=== PATIENT | male | born 1965 | race American Indian/Alaskan Native ===

== ENCOUNTER 2017-06-11 09:30 | Emergency (ER) | payer MEDICARE ==
[2017-06-11 10:31] LABS: Bacteria,Urine 1+ /HPF (Negative); Bilirubin,Urine NEG (Negative); Blood,Urine NEG (Negative); Ketones,Urine NEG (Negative); Leukocyte Esterase,Urine NEG (Negative); Nitrite,Urine NEG (Negative); Urobilinogen,Urine < 2.0 mg/dL (<2.0)
[2017-06-11 10:37] LABS: Basophils % (Auto) 0.3 % (0.0-1.8); Eosinophils % (Auto) 1.6 % (0.0-4.3); Hematocrit 47.1 % (35.5-45.6); Hemoglobin 16.4 gm/dl (11.8-15.2); Mean Corpuscular HGB Conc 35 % (32-34); Mean Corpuscular Hemoglobin 31 pg (28-32); Mean Corpuscular Volume 88 fl (84-94); Platelet Count 253 K/mm3 (140-440); Red Blood Count 5.34 M/mm3 (3.65-5.03); Red Cell Distribution Width 13.8 % (13.2-15.2); White Blood Count 5.1 K/mm3 (4.5-11.0)
[2017-06-11 10:49] LABS: Amylase 85 units/L (27-131); Lipase 39 units/L (13-60)
[2017-06-11 10:50] LABS: Anion Gap 20 mmol/L; BUN/Creatinine Ratio 11; Blood Urea Nitrogen 10 mg/dL (9-20); Calcium 10.3 mg/dL (8.4-10.2); Carbon Dioxide 27 mmol/L (22-30); Chloride 95.7 mmol/L (98-107); Glucose 127 mg/dL (75-100); Potassium 3.9 mmol/L (3.6-5.0); Sodium 139 mmol/L (137-145)
--- NOTE | 2017-06-11 15:40 | Emergency Department Report ---
ED N/V/D HPI - General Chief complaint: Nausea/Vomiting/Diarrhea Stated complaint: REFLUX Time Seen by Provider: 06/11/17 15:26 Source: patient Mode of arrival: Ambulatory Limitations: No Limitations - History of Present Illness Initial comments: 51-year-old male with a past medical history of chronic reflux and sent to the hospital with epigastric pain and reflux symptoms with just 3 days. Patient states in 2009 he had surgery for severe reflux that has been doing pretty well since. Recently he states he has been out of his omeprazole for 2 weeks because his PMD forgot to refill the medication. Patient also admits to being noncompliant with his small frequent meals diet and advanced to 3 peak meals a day. Pain is intermittent, burning, and severe at times. Symptoms are intermittent and worse her by mouth intake and lying supine. The last 3 days patient's pain having intermittent nausea and vomiting with associated epigastric and chest burning. Symptoms became severe last night and patient was unable to sleep due to frequent reflux symptoms with associated yellow vomitus that was blood streaked on occasion and light brown. No reports of fever, melena, or or hematochezia. Patient expresses concern that he might cause damage to his distal esophagus gerd surgery. GI Dr james. - Related Data Previous Rx's Medication Instructions Recorded Last Taken Type Amoxicillin [Amoxicillin TAB] 875 mg PO BID #20 tablet 05/28/15 Unknown Rx HYDROcodone/APAP 5-325 [Elizabeth 1 each PO Q6HR PRN #20 tablet 06/11/17 Unknown Rx 5/325] Mag Hydrox/Aluminum Hyd/Simeth 20 ml PO QID PRN #1 bottle 06/11/17 Unknown Rx [Maalox Advanced Suspension] Ondansetron [Zofran Odt] 4 mg PO Q8HR #20 tab.rapdis 06/11/17 Unknown Rx Pantoprazole [Protonix TAB] 20 mg PO QDAY #30 tablet. 06/11/17 Unknown Rx Allergies Allergy/AdvReac Type Severity Reaction Status Date / Time No Known Allergies Allergy Verified 05/28/15 00:33 ED Review of Systems ROS: Stated complaint: REFLUX Other details as noted in HPI Comment: All other systems reviewed and negative Other: Constitutional: No fevers chills or weight loss Eyes: No eye pain visual changes or discharge ENT: No ear pain or throat pain Neck: Denies pain Respiratory: Denies cough wheezing shortness of breath Cardiovascular: Denies palpitations, syncope GI: As per HPI : Denies dysuria Musculoskeletal: Denies back pain Skin: Denies rash, lesions, erythema Neurologic: Denies headache, numbness, weakness Psychiatric: Denies suicidal ideation, hallucinations ED Past Medical Hx - Past Medical History Hx Asthma: Yes (as a child) Additional medical history: chronic back pain. acid reflux - Surgical History Additional Surgical History: compound fracture right leg 1981. hiatal hernia and Irineo fundoplication - Social History Smoking Status: Never Smoker Substance Use Type: Alcohol - Medications Home Medications: Home Medications Medication Instructions Recorded Confirmed Last Taken Type Amoxicillin [Amoxicillin TAB] 875 mg PO BID #20 tablet 05/28/15 Unknown Rx HYDROcodone/APAP 5-325 [Elizabeth 1 each PO Q6HR PRN #20 tablet 06/11/17 Unknown Rx 5/325] Mag Hydrox/Aluminum Hyd/Simeth 20 ml PO QID PRN #1 bottle 06/11/17 Unknown Rx [Maalox Advanced Suspension] Ondansetron [Zofran Odt] 4 mg PO Q8HR #20 tab.rapdis 06/11/17 Unknown Rx Pantoprazole [Protonix TAB] 20 mg PO QDAY #30 tablet.dr 06/11/17 Unknown Rx ED Physical Exam - General Limitations: No Limitations - Other Other exam information: General: No limitations, patient is alert in no acute distress Head exam: Atraumatic, normocephalic Eyes exam: Normal appearance, nonicteric sclera ENT: Moist mucous membrane, normal oropharynx Neck exam: Normal inspection, full range of motion, no meningismus nontender Respiratory exam: Clear to auscultation bilateral, no wheezes, rales, crackles Cardiovascular: Normal rate and rhythm, normal heart sounds Abdomen: Soft, nondistended, mild epigastric tenderness, with normal bowel sounds, no rebound, or guarding Extremity: Full range of motion normal inspection no deformity Back: Normal Inspection, full range of motion, no tenderness Neurologic: Alert, oriented x3, cranial nerves intact, no motor or sensory deficit Psychiatric: normal affect, normal mood Skin: Warm, dry, intact ED Course Vital Signs 06/11/17 06/11/17 06/11/17 09:38 16:18 16:20 Temperature 98.6 F 98.0 F Pulse Rate 103 H 83 Respiratory 18 16 16 Rate Blood Pressure 127/82 Blood Pressure 123/72 [Left] O2 Sat by Pulse 100 99 99 Oximetry ED Medical Decision Making - Lab Data Result diagrams: 06/11/17 09:56 06/11/17 09:56 Lab Results 06/11/17 06/11/17 06/11/17 Range/Units 05:56 09:55 09:56 WBC 5.1 (4.5-11.0) K/mm3 RBC 5.34 H (3.65-5.03) M/mm3 Hgb 16.4 H (11.8-15.2) gm/dl Hct 47.1 H (35.5-45.6) % MCV 88 (84-94) fl MCH 31 (28-32) pg MCHC 35 H (32-34) % RDW 13.8 (13.2-15.2) % Plt Count 253 (140-440) K/mm3 Lymph % (Auto) 41.5 H (13.4-35.0) % [place] % (Auto) 9.3 H (0.0-7.3) % Eos % (Auto) 1.6 (0.0-4.3) % Baso % (Auto) 0.3 (0.0-1.8) % Lymph # 2.1 (1.2-5.4) K/mm3 [place] # 0.5 (0.0-0.8) K/mm3 Eos # 0.1 (0.0-0.4) K/mm3 Baso # 0.0 (0.0-0.1) K/mm3 Seg Neutrophils % 47.3 (40.0-70.0) % Seg Neutrophils # 2.4 (1.8-7.7) K/mm3 Sodium (137-145) mmol/L Potassium (3.6-5.0) mmol/L Chloride (98-107) mmol/L Carbon Dioxide (22-30) mmol/L Anion Gap mmol/L BUN (9-20) mg/dL Creatinine (0.8-1.5) mg/dL Estimated GFR ml/min BUN/Creatinine Ratio % Glucose (75-100) mg/dL Calcium (8.4-10.2) mg/dL Total Bilirubin 0.60 (0.1-1.2) mg/dL Direct Bilirubin < 0.2 (0-0.2) mg/dL Indirect Bilirubin 0.4 mg/dL AST 34 (5-40) units/L ALT 50 (7-56) units/L Alkaline Phosphatase 63 (35-129) units/L Total Protein 7.9 (6.3-8.2) g/dL Albumin 4.7 (3.9-5) g/dL Albumin/Globulin Ratio 1.5 % Amylase (27-131) units/L Lipase (13-60) units/L Urine Color Yellow (Yellow) Urine Turbidity Clear (Clear) Urine pH 9.0 H (5.0-7.0) Ur Specific [place] 1.017 (1.003-1.030) Urine Protein 100 mg/dl (Negative) mg/dL Urine Glucose (UA) Neg (Negative) mg/dL Urine Ketones Neg (Negative) mg/dL Urine Blood Neg (Negative) Urine Nitrite Neg (Negative) Urine Bilirubin Neg (Negative) Urine Urobilinogen < 2.0 (<2.0) mg/dL Ur Leukocyte Esterase Neg (Negative) Urine WBC (Auto) 3.0 (0.0-6.0) /HPF Urine RBC (Auto) 2.0 (0.0-6.0) /HPF Urine Bacteria (Auto) 1+ (Negative) /HPF 06/11/17 06/11/17 Range/Units 09:56 09:56 WBC (4.5-11.0) K/mm3 RBC (3.65-5.03) M/mm3 Hgb (11.8-15.2) gm/dl Hct (35.5-45.6) % MCV (84-94) fl MCH (28-32) pg MCHC (32-34) % RDW (13.2-15.2) % Plt Count (140-440) K/mm3 Lymph % (Auto) (13.4-35.0) % [place] % (Auto) (0.0-7.3) % Eos % (Auto) (0.0-4.3) % Baso % (Auto) (0.0-1.8) % Lymph # (1.2-5.4) K/mm3 [place] # (0.0-0.8) K/mm3 Eos # (0.0-0.4) K/mm3 Baso # (0.0-0.1) K/mm3 Seg Neutrophils % (40.0-70.0) % Seg Neutrophils # (1.8-7.7) K/mm3 Sodium 139 (137-145) mmol/L Potassium 3.9 (3.6-5.0) mmol/L Chloride 95.7 L (98-107) mmol/L Carbon Dioxide 27 (22-30) mmol/L Anion Gap 20 mmol/L BUN 10 (9-20) mg/dL Creatinine 0.9 (0.8-1.5) mg/dL Estimated GFR > 60 ml/min BUN/Creatinine Ratio 11 % Glucose 127 H (75-100) mg/dL Calcium 10.3 H (8.4-10.2) mg/dL Total Bilirubin (0.1-1.2) mg/dL Direct Bilirubin (0-0.2) mg/dL Indirect Bilirubin mg/dL AST (5-40) units/L ALT (7-56) units/L Alkaline Phosphatase (35-129) units/L Total Protein (6.3-8.2) g/dL Albumin (3.9-5) g/dL Albumin/Globulin Ratio % Amylase 85 (27-131) units/L Lipase 39 (13-60) units/L Urine Color (Yellow) Urine Turbidity (Clear) Urine pH (5.0-7.0) Ur Specific [place] (1.003-1.030) Urine Protein (Negative) mg/dL Urine Glucose (UA) (Negative) mg/dL Urine Ketones (Negative) mg/dL Urine Blood (Negative) Urine Nitrite (Negative) Urine Bilirubin (Negative) Urine Urobilinogen (<2.0) mg/dL Ur Leukocyte Esterase (Negative) Urine WBC (Auto) (0.0-6.0) /HPF Urine RBC (Auto) (0.0-6.0) /HPF Urine Bacteria (Auto) (Negative) /HPF - Medical Decision Making Patient feels much better at the ED treatment including 1 L normal saline, Pepcid IV, morphine IV, Zofran IV, by mouth Maalox and viscous lidocaine - Differential Diagnosis GERD, pancreatitis, cholecystitis, biliary colic Critical Care Time: No Critical care attestation.: If time is entered above; I have spent that time in minutes in the direct care of this critically ill patient, excluding procedure time. ED Disposition Clinical Impression: GERD (gastroesophageal reflux disease) Disposition: DC-01 TO HOME OR SELFCARE Is pt being admited?: No Does the pt Need Aspirin: No Condition: Stable Instructions: Gastroesophageal Reflux in Children (ED) Additional Instructions: Taking medication as prescribed. Follow-up with your doctor and your GI doctor provided. Return is symptoms worsen Prescriptions: HYDROcodone/APAP 5-325 [Elizabeth 5/325] 1 each PO Q6HR PRN #20 tablet PRN Reason: Pain Mag Hydrox/Aluminum Hyd/Simeth [Maalox Advanced Suspension] 20 ml PO QID PRN #1 bottle PRN Reason: Indigestion Ondansetron [Zofran Odt] 4 mg PO Q8HR #20 tab.rapdis Pantoprazole [Protonix TAB] 20 mg PO QDAY #30 tablet. Referrals: PRIMARY CAREMD [Primary Care Provider] - 3-5 Days NAZIA JAMES MD [Staff Physician] - 3-5 Days Time of Disposition: 17:21
[2017-06-11 15:48] LABS: Alanine Aminotransferase 50 units/L (7-56); Albumin 4.7 g/dL (3.9-5); Albumin/Globulin Ratio 1.5 %; Total Protein 7.9 g/dL (6.3-8.2)
[2017-06-11] MEDS ORDERED: MORPHINE ONE (15:51)
[2017-06-11 16:03] LABS: Alkaline Phosphatase 63 units/L (35-129)
[2017-06-11] MEDS: ALUM-MAG HYDROX-SIMETH 200-200-20MG/5ML PO ONE (16:03)
[2017-06-11] MEDS: LIDOCAINE VISCOUS 2% PO ONE (16:03)
[2017-06-11] MEDS: PEPCID IV ONE (16:03)
[2017-06-11] MEDS: MORPHINE IV ONE (16:03)
[2017-06-11] MEDS: NACL 0.9% 1000 ML 1,000 ML IV ONE (16:03)
[2017-06-11] MEDS: ZOFRAN IV ONE (16:03)
[2017-06-11 16:11] LABS: Bilirubin,Direct < 0.2 mg/dL (0-0.2); Bilirubin,Indirect 0.4 mg/dL
[2017-06-11 16:20] VITALS: BP 123/72
== END 2017-06-11 17:38 | disposition home or self-care (01) ==
LOC: ED 09:30
DX: K21.9 Gastro-esophageal reflux disease without esophagitis (principal); J45.909 Unspecified asthma, uncomplicated
CPT/HCPCS: 36415; 80048; 80074; 81001; 82150; 83690; 85025; 96361; 96374; 96375; 99283; J2270; J2405; J7030

== ENCOUNTER 2019-05-28 17:28 | Emergency (ER) | payer MEDICARE ==
[2019-05-28 18:30] VITALS: BP 140/93
--- NOTE | 2019-05-28 19:22 | XRay Report ---
CHEST PA AND LATERAL VIEWS INDICATION: COUGH. COMPARISON: 07/31/2018 FINDINGS: Support devices: None Heart: Stable. Lungs/Pleura: No acute pulmonary or pleural findings. IMPRESSION: 1. No significant change. Signer Name: Tiago Brooke MD Signed: 05/28/2019 7:18 PM Workstation Name: [id number]
--- NOTE | 2019-05-28 19:59 | Emergency Department Report ---
- General Chief Complaint: Upper Respiratory Infection Stated Complaint: COUGH Time Seen by Provider: 05/28/19 19:17 Source: patient Mode of arrival: Ambulatory Limitations: No Limitations - History of Present Illness Initial Comments: 53-year-old male with history of acid reflux presents to ED with URI symptoms, onset this morning. Patient reports headache, sore throat, congestion, earache, cough, muscle aches, nausea and vomiting. Patient denies fever, chest pain, shortness of breath. MD Complaint: cough -: This morning Severity: mild Consistency: constant Improves With: nothing Worsens With: nothing Associated Symptoms: headache, nasal congestion, sore throat, cough, nausea, vomiting. denies: fever, chest pain, shortness of breath, abdominal pain, diarrhea - Related Data Home Medications Medication Instructions Recorded Confirmed Last Taken Esomeprazole Magnesium [Nexium] 40 mg PO DAILY 07/01/18 07/01/18 Unknown Previous Rx's Medication Instructions Recorded Last Taken Type Dicyclomine [Bentyl] 10 mg PO TID #30 capsule 07/01/18 Unknown Rx Mag Hydrox/Aluminum Hyd/Simeth 30 ml PO Q8H #1 bottle 07/01/18 Unknown Rx [Maalox Advanced Suspension] methOCARBAMOL [Robaxin TAB] 500 mg PO BID #20 tab 07/01/18 Unknown Rx metroNIDAZOLE [Flagyl TAB] 500 mg PO BID #14 tablet 07/01/18 Unknown Rx Benzonatate [Tessalon Perle] 100 mg PO TID PRN #30 capsule 07/31/18 Unknown Rx Cetirizine HCl [Allergy Relief] 10 mg PO DAILY #30 tablet 07/31/18 Unknown Rx Fluticasone [Flonase] 1 spray NS QDAY #1 bottle 07/31/18 Unknown Rx Guaifenesin/Dm/Pseudoephedrine 1 each PO BID #14 tablet 07/31/18 Unknown Rx [Desgen Dm Tablet] Benzonatate [Tessalon Perles] 100 mg PO Q8HR PRN #20 capsule 05/28/19 Unknown Rx Naproxen [Naprosyn] 500 mg PO BID #20 tablet 05/28/19 Unknown Rx Ondansetron [Zofran Odt] 4 mg PO Q8HR PRN #20 tab.rapdis 05/28/19 Unknown Rx Allergies Allergy/AdvReac Type Severity Reaction Status Date / Time No Known Allergies Allergy Verified 05/28/19 18:29 ED Review of Systems ROS: Stated complaint: COUGH Other details as noted in HPI Comment: All other systems reviewed and negative Constitutional: denies: chills, fever ENT: ear pain, throat pain, congestion Respiratory: cough. denies: shortness of breath Cardiovascular: denies: chest pain Gastrointestinal: nausea, vomiting. 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 acid reflux - Surgical History Past Surgical History?: Yes Additional Surgical History: compound fracture right leg 1982, hiatal hernia. hiatal hernia and Irineo fundoplication - Social History Smoking Status: Never Smoker Substance Use Type: Alcohol - Medications Home Medications: Home Medications Medication Instructions Recorded Confirmed Last Taken Type Dicyclomine [Bentyl] 10 mg PO TID #30 capsule 07/01/18 Unknown Rx Esomeprazole Magnesium [Nexium] 40 mg PO DAILY 07/01/18 07/01/18 Unknown History Mag Hydrox/Aluminum Hyd/Simeth 30 ml PO Q8H #1 bottle 07/01/18 Unknown Rx [Maalox Advanced Suspension] methOCARBAMOL [Robaxin TAB] 500 mg PO BID #20 tab 07/01/18 Unknown Rx metroNIDAZOLE [Flagyl TAB] 500 mg PO BID #14 tablet 07/01/18 Unknown Rx Benzonatate [Tessalon Perle] 100 mg PO TID PRN #30 capsule 07/31/18 Unknown Rx Cetirizine HCl [Allergy Relief] 10 mg PO DAILY #30 tablet 07/31/18 Unknown Rx Fluticasone [Flonase] 1 spray NS QDAY #1 bottle 07/31/18 Unknown Rx Guaifenesin/Dm/Pseudoephedrine 1 each PO BID #14 tablet 07/31/18 Unknown Rx [Desgen Dm Tablet] Benzonatate [Tessalon Perles] 100 mg PO Q8HR PRN #20 capsule 05/28/19 Unknown Rx Naproxen [Naprosyn] 500 mg PO BID #20 tablet 05/28/19 Unknown Rx Ondansetron [Zofran Odt] 4 mg PO Q8HR PRN #20 tab.rapdis 05/28/19 Unknown Rx ED Physical Exam - General Limitations: No Limitations General appearance: alert, in no apparent distress - Head Head exam: Present: atraumatic, normocephalic - Eye Eye exam: Present: normal appearance, EOMI - ENT ENT exam: Present: normal orophraynx, mucous membranes moist, TM's normal bilaterally - Neck Neck exam: Present: normal inspection, full ROM. Absent: meningismus - Respiratory Respiratory exam: Present: normal lung sounds bilaterally. Absent: respiratory distress - Cardiovascular Cardiovascular Exam: Present: regular rate, normal rhythm - GI/Abdominal GI/Abdominal exam: Present: soft. Absent: distended, tenderness - Extremities Exam Extremities exam: Present: normal inspection - Neurological Exam Neurological exam: Present: alert, oriented X3, CN II-XII intact. Absent: motor sensory deficit - Psychiatric Psychiatric exam: Present: normal affect, normal mood - Skin Skin exam: Present: warm, dry, intact, normal color ED Course Vital Signs 05/28/19 18:29 Temperature 98.9 F Pulse Rate 90 Respiratory 20 Rate Blood Pressure 140/93 [Right] O2 Sat by Pulse 100 Oximetry ED Medical Decision Making - Radiology Data Radiology results: report reviewed, image reviewed - Medical Decision Making - nml vitals - no resp distress - CXR nml - d/c home; outpt f/u advised; return precautions given - Differential Diagnosis URI, flu, pneumonia Critical care attestation.: If time is entered above; I have spent that time in minutes in the direct care of this critically ill patient, excluding procedure time. ED Disposition Clinical Impression: Upper respiratory infection Disposition: DC-01 TO HOME OR SELFCARE Is pt being admited?: No Condition: Stable Instructions: Upper Respiratory Infection (ED), Viral Syndrome (ED) Prescriptions: Naproxen [Naprosyn] 500 mg PO BID #20 tablet Benzonatate [Tessalon Perles] 100 mg PO Q8HR PRN #20 capsule PRN Reason: Cough Ondansetron [Zofran Odt] 4 mg PO Q8HR PRN #20 tab.rapdis PRN Reason: Vomiting Referrals: PRIMARY MD RACHELE [Primary Care Provider] - 3-5 Days ANUSHKA GRIFFITH MD [Staff Physician] - 3-5 Days [facility] [Provider Group] - 3-5 Days ROGERIO PACE MD [Staff Physician] - 3-5 Days Time of Disposition: 19:59
== END 2019-05-28 20:35 | disposition home or self-care (01) ==
LOC: ED 17:28
DX: J06.9 Acute upper respiratory infection, unspecified (principal); K21.9 Gastro-esophageal reflux disease without esophagitis; J45.909 Unspecified asthma, uncomplicated; G89.29 Other chronic pain; Z98.890 Other specified postprocedural states; Z79.899 Other long term (current) drug therapy
CPT/HCPCS: 71046

== ENCOUNTER 2021-05-15 23:15 | Emergency (ER) | payer SELFPAY | END 2021-05-16 04:19 | LOC: ED 23:15 | DX: M25.512 Pain in left shoulder (principal); Z53.21 Procedure and treatment not carried out due to patient leaving prior to being seen by health care provider ==

== ENCOUNTER 2021-05-16 12:51 | Emergency (ER) | payer MEDICARE ==
[2021-05-16] MEDS ORDERED: predniSONE 20 MG TAB PO ONE (13:13)
[2021-05-16] MEDS ORDERED: KETOROLAC 60 MG/2 ML INJ IM ONE (13:13)
--- NOTE | 2021-05-16 13:50 | XRay Report ---
LEFT SHOULDER 3 VIEW(S) INDICATION / CLINICAL INFORMATION: left shoulder pain COMPARISON: None available. FINDINGS: BONES / JOINT(S): No acute fracture or subluxation. Mild degenerative changes of the glenohumeral and acromioclavicular joints. SOFT TISSUES: No significant abnormality. ADDITIONAL FINDINGS: None. Signer Name: Rodolfo Crow MD Signed: 05/16/2021 1:46 PM Workstation Name: [id number]
--- NOTE | 2021-05-16 13:56 | Emergency Department Report ---
ED Upper Extremity Inj HPI - General Chief Complaint: Shoulder Injury Stated Complaint: L SHOULDER PAIN Time Seen by Provider: 05/16/21 13:07 Source: patient Mode of arrival: Ambulatory Limitations: No Limitations - History of Present Illness Initial Comments: This is a 55-year-old male nontoxic, well nourished in appearance, no acute signs of distress presents to the ED with c/o of left shoulder pain 2 days. Patient stated that he was recharging a battery in a car and while leaning over developed sharp instant pain to left shoulder. Patient denies any other injuries or trauma. Patient denies any numbness, tingling, fever, chills, nausea, vomiting, chest pain, shortness of breath, headache, stiff neck. Patient denies any joint swelling or joint redness. Patient has some decreased range of motion due to pain. Patient stated pain resolved/subsided during rest. Patient denies any allergies. MD Complaint: Injury to:: left, shoulder -: days(s) Other Extremity Injury: Shoulder: Left Severity scale (0 -10): 8 Improves With: immobilization Worsens With: movement of extremity Associated Symptoms: denies other symptoms. denies: weakness, numbness, neck pain, suspects foreign body, nausea/vomiting, heard/felt popping sensat - Related Data Home Medications Medication Instructions Recorded Confirmed Last Taken Esomeprazole Magnesium [Nexium] 40 mg PO DAILY 07/01/18 07/01/18 Unknown Previous Rx's Medication Instructions Recorded Last Taken Type Dicyclomine [Bentyl] 10 mg PO TID #30 capsule 07/01/18 Unknown Rx Mag Hydrox/Aluminum Hyd/Simeth 30 ml PO Q8H #1 bottle 07/01/18 Unknown Rx [Maalox Advanced Suspension] methOCARBAMOL [Robaxin TAB] 500 mg PO BID #20 tab 07/01/18 Unknown Rx metroNIDAZOLE [Flagyl TAB] 500 mg PO BID #14 tablet 07/01/18 Unknown Rx Benzonatate [Tessalon Perle] 100 mg PO TID PRN #30 capsule 07/31/18 Unknown Rx Cetirizine HCl [Allergy Relief] 10 mg PO DAILY #30 tablet 07/31/18 Unknown Rx Fluticasone [Flonase] 1 spray NS QDAY #1 bottle 07/31/18 Unknown Rx Guaifenesin/Dm/Pseudoephedrine 1 each PO BID #14 tablet 07/31/18 Unknown Rx [Desgen Dm Tablet] Benzonatate [Tessalon Perles] 100 mg PO Q8HR PRN #20 capsule 05/28/19 Unknown Rx Naproxen [Naprosyn] 500 mg PO BID #20 tablet 05/28/19 Unknown Rx Ondansetron [Zofran Odt] 4 mg PO Q8HR PRN #20 tab.rapdis 05/28/19 Unknown Rx Cyclobenzaprine [Flexeril] 10 mg PO QHS PRN #10 tablet 05/16/21 Unknown Rx Naproxen 500 mg PO Q12H PRN #12 tablet 05/16/21 Unknown Rx Allergies Allergy/AdvReac Type Severity Reaction Status Date / Time No Known Allergies Allergy Verified 05/28/19 18:29 ED Review of Systems ROS: Stated complaint: L SHOULDER PAIN Other details as noted in HPI Comment: All other systems reviewed and negative Constitutional: denies: chills, fever Eyes: denies: eye pain, eye discharge, vision change ENT: denies: ear pain, throat pain Respiratory: denies: cough, shortness of breath, wheezing Cardiovascular: denies: chest pain, palpitations Endocrine: no symptoms reported Gastrointestinal: denies: abdominal pain, nausea, diarrhea Genitourinary: denies: urgency, dysuria Musculoskeletal: denies: back pain, joint swelling, arthralgia Skin: denies: rash, lesions Neurological: denies: headache, weakness, paresthesias Psychiatric: denies: anxiety, depression Hematological/Lymphatic: denies: easy bleeding, easy bruising ED Past Medical Hx - Past Medical History Previous Medical History?: Yes Hx GERD: Yes Hx Asthma: Yes (as a child) Additional medical history: chronic back pain, 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 acid reflux - Surgical History Past Surgical History?: Yes Additional Surgical History: compound fracture right leg 1981, hiatal hernia. hiatal hernia and Irineo fundoplication - Social History Smoking Status: Never Smoker Substance Use Type: Alcohol - Medications Home Medications: Home Medications Medication Instructions Recorded Confirmed Last Taken Type Dicyclomine [Bentyl] 10 mg PO TID #30 capsule 07/01/18 Unknown Rx Esomeprazole Magnesium [Nexium] 40 mg PO DAILY 07/01/18 07/01/18 Unknown History Mag Hydrox/Aluminum Hyd/Simeth 30 ml PO Q8H #1 bottle 07/01/18 Unknown Rx [Maalox Advanced Suspension] methOCARBAMOL [Robaxin TAB] 500 mg PO BID #20 tab 07/01/18 Unknown Rx metroNIDAZOLE [Flagyl TAB] 500 mg PO BID #14 tablet 07/01/18 Unknown Rx Benzonatate [Tessalon Perle] 100 mg PO TID PRN #30 capsule 07/31/18 Unknown Rx Cetirizine HCl [Allergy Relief] 10 mg PO DAILY #30 tablet 07/31/18 Unknown Rx Fluticasone [Flonase] 1 spray NS QDAY #1 bottle 07/31/18 Unknown Rx Guaifenesin/Dm/Pseudoephedrine 1 each PO BID #14 tablet 07/31/18 Unknown Rx [Desgen Dm Tablet] Benzonatate [Tessalon Perles] 100 mg PO Q8HR PRN #20 capsule 05/28/19 Unknown Rx Naproxen [Naprosyn] 500 mg PO BID #20 tablet 05/28/19 Unknown Rx Ondansetron [Zofran Odt] 4 mg PO Q8HR PRN #20 tab.rapdis 05/28/19 Unknown Rx Cyclobenzaprine [Flexeril] 10 mg PO QHS PRN #10 tablet 05/16/21 Unknown Rx Naproxen 500 mg PO Q12H PRN #12 tablet 05/16/21 Unknown Rx ED Physical Exam - General Limitations: No Limitations General appearance: alert, in no apparent distress - Head Head exam: Present: atraumatic, normocephalic - Eye Eye exam: Present: normal appearance - Neck Neck exam: Present: normal inspection, full ROM. Absent: lymphadenopathy - Respiratory Respiratory exam: Present: normal lung sounds bilaterally. Absent: respiratory distress, wheezes, rales, rhonchi, stridor, chest wall tenderness, accessory muscle use, decreased breath sounds, prolonged expiratory - Cardiovascular Cardiovascular Exam: Present: regular rate, normal rhythm, normal heart sounds. Absent: bradycardia, tachycardia, irregular rhythm, systolic murmur, diastolic murmur, rubs, gallop - Extremities Exam Extremities exam: Present: normal inspection, full ROM (with pain), tenderness, normal capillary refill. Absent: joint swelling - Expanded Upper Extremity Exam Left General: Present: normal inspection Shoulder Exam: Present: normal inspection, full ROM (with pain), tenderness. Absent: swelling, abrasion, laceration, ecchymosis, deformity, crepidus, dislocation, erythema, tenderness over AC joint Upper Arm exam: Present: normal inspection, full ROM. Absent: tenderness, swelling Elbow exam: Present: normal inspection, full ROM. Absent: tenderness, swelling Forearm Wrist exam: Present: normal inspection, full ROM. Absent: tenderness, swelling Hand Wrist exam: Present: normal inspection, full ROM. Absent: tenderness, swelling Vascular: Present: normal capillary refill. Absent: vascular compromise (Neurovascular within normal limits) - Back Exam Back exam: Present: normal inspection, full ROM. Absent: tenderness, CVA tenderness (R), CVA tenderness (L), muscle spasm, paraspinal tenderness, vertebral tenderness, rash noted - Neurological Exam Neurological exam: Present: alert, oriented X3, normal gait - Psychiatric Psychiatric exam: Present: normal affect, normal mood - Skin Skin exam: Present: warm, dry, intact, normal color. Absent: rash ED Course Vital Signs 05/16/21 13:01 Temperature 98 F Pulse Rate 98 H Respiratory 20 Rate Blood Pressure 122/87 O2 Sat by Pulse 98 Oximetry - Reevaluation(s) Reevaluation #1: 05/16/21 13:54 Patient is speaking in full sentences with no signs of distress noted. ED Medical Decision Making - Radiology Data [facility] [address] [place] [address] XRay Report Signed Patient: ROLA RUSS JR MR#: [id number] : 1965 Acct:[id number] Age/Sex: 55 / M ADM Date: 05/16/21 Loc: ED Attending Dr: Ordering Physician: RANDEE PRADO NP Date of Service: 05/16/21 Procedure(s): XR shoulder 2+V LT Accession Number(s): [id number] cc: RANDEE PRADO NP Fluoro Time In Minutes: LEFT SHOULDER 3 VIEW(S) INDICATION / CLINICAL INFORMATION: left shoulder pain COMPARISON: None available. FINDINGS: BONES / JOINT(S): No acute fracture or subluxation. Mild degenerative changes of the glenohumeral and acromioclavicular joints. SOFT TISSUES: No significant abnormality. ADDITIONAL FINDINGS: None. Signer Name: Rodolfo Crow MD Signed: 05/16/2021 1:46 PM Workstation Name: [id number] Transcribed By: SB Dictated By: RODOLFO CROW MD Electronically Authenticated By: RODOLFO CROW MD Signed Date/Time: 05/16/211345 DD/ 45 TD/TT: - Medical Decision Making This is a 55-year-old male that presents with left shoulder strain. Patient is stable and was examined by me. I referred patient to an orthopedic doctor for further evaluation for possible MRI. X-ray has been obtained and dictated by the radiologist. Patient is notified of the x-ray report with noted by the patient. Patient does have normal ROM with some tenderness and no joint swelling. No ecchymosis. no joint redness or swelling. Not warm to touch. No signs of cellulites present. Patient received a shoulder sling. Patient was instructed to RICE therapy. Patient received Toradol and Prednisone for pain which stated symptoms of pain resolved and subsided. Patient is discharged with Naoproxen and flexeril. At time of discharge, the patient does not seem toxic or ill in appearance. No acute signs of distress noted. Patient agrees to discharge treatment plan of care. No further questions noted by the patient. Critical care attestation.: If time is entered above; I have spent that time in minutes in the direct care of this critically ill patient, excluding procedure time. ED Disposition Clinical Impression: Muscle strain Strain of left shoulder Qualifiers: Encounter type: initial encounter Qualified Code(s): S46.912A - Strain of unspecified muscle, fascia and tendon at shoulder and upper arm level, left arm, initial encounter Disposition: HOME / SELF CARE / HOMELESS Is pt being admited?: No Does the pt Need Aspirin: No Condition: Stable Instructions: Cyclobenzaprine tablets, Muscle Strain, [id number] Additional Instructions: Follow-up with a orthopedic doctor in 3-5 days or if symptoms worsen and continue return to emergency room as soon as possible. No physical activity that extremity until cleared by orthopedic doctor Take naproxen and Flexeril as prescribed. Do not operate heavy machinery while taking Flexeril due to sedation Prescriptions: Cyclobenzaprine [Flexeril] 10 mg PO QHS PRN #10 tablet PRN Reason: Muscle Spasm Naproxen 500 mg PO Q12H PRN #12 tablet PRN Reason: Pain , Severe (7-10) Referrals: PRIMARY CAREMD [Primary Care Provider] - 3-5 Days BLANCA SONG MD [Staff Physician] - 3-5 Days Forms: Work/School Release Form(ED) Time of Disposition: 13:56
[2021-05-16 14:21] VITALS: BP 122/80
== END 2021-05-16 14:21 | disposition home or self-care (01) ==
LOC: ED 12:51
DX: S46.912A Strain of unspecified muscle, fascia and tendon at shoulder and upper arm level, left arm, initial encounter (principal); K21.9 Gastro-esophageal reflux disease without esophagitis; J45.909 Unspecified asthma, uncomplicated; M54.9 Dorsalgia, unspecified; M75.102 Unspecified rotator cuff tear or rupture of left shoulder, not specified as traumatic; M75.101 Unspecified rotator cuff tear or rupture of right shoulder, not specified as traumatic; Z98.890 Other specified postprocedural states; X58.XXXA Exposure to other specified factors, initial encounter; Y93.89 Activity, other specified; Y92.89 Other specified places as the place of occurrence of the external cause; Y99.8 Other external cause status
CPT/HCPCS: 73030; 96372; 99283; J1885; J7512